=== PATIENT | female | born 1950 | race Caucasian/White ===

== ENCOUNTER → 2016-11-04 | Outpatient (CLI) | payer MEDICARE, OTHER ==
--- NOTE | ~2016-11-04 | MY11 ---
[facility] A Service of [facility] RADIOLOGY TEXT RESULTS PATIENT: ROBERTO LEYVA LOCATION: [facility] : 50 UNIT #: [id number] AGE: [address]: Eamon Patel MD SEX: F ORDER DR: [id number] [place] [id number] O MR#: [id number] Acc #: [id number] NAME: ROBERTO LEYVA : 1950 SEX: F STUDY DATE/TIME: 11/04/2016 11:45 UNIT: [facility] ROOM: STUDY DESCRIPTION: MY Mammogram Screening Dig Niels Attending Physician: Eamon Patel M.D. Referring Physician: Eamon Patel M.D. Ordering Physician: Eamon Patel M.D. Primary Care Physician: Eamon Patel M.D. MEDICAL IMAGING REPORT This report is preliminary unless electronic signature is present. EXAM Bilateral digital screening mammogram with CAD, 11/04/2016. CLINICAL HISTORY 66-year-old female with no personal or family history of breast cancer. FINDINGS The background breast parenchyma is dense. Please note that dense breast tissue can obscure underlying breast pathology. There are numerous skin calcifications throughout the posterior aspect of both breasts in the axilla. No suspicious mass, microcalcification, or architectural distortion. The exam is compared to prior mammogram dated 02/07/2014. IMPRESSION Benign mammogram. Recommendations: Annual screening mammogram. Patient's over the age of 40 are entered into a reminder system with target due date for the next mammogram. BIRADS: 2 Benign findings Dictated by... Avni Gomez M.D. THIS IS AN ELECTRONICALLY VERIFIED REPORT Avni Gomez M.D. at 11/04/2016 4:48 PM RPC/gabriella TD: 11/04/2016 15:39 [facility] A Service [facility] RADIOLOGY TEXT RESULTS PATIENT: ROBERTO LEYVA LOCATION: [facility] : 50 UNIT #: [id number] AGE: [address]: Eamon Patel MD SEX: F ORDER DR: JOB #: [id number] MEDICAL IMAGING REPORT Page 1 of 1
== END | disposition home or self-care (01) ==
LOC: SMAM 11:03
DX: Z12.31 Encounter for screening mammogram for malignant neoplasm of breast (principal)
CPT/HCPCS: G0202